=== PATIENT | female | born 1945 | race Caucasian/White ===

== ENCOUNTER → 2019-07-11 | Outpatient (CLI) | payer MEDICARE, BC ==
[~2019-07-11] MED LIST: ATEN25 PO; ATEN50 PO; ATOR20 PO; FLUO10 PO; LOSA25 PO
[2019-07-13 15:07] LABS: HPV 16 Negative (Negative); HPV 18 Negative (Negative); HPV OTHER HR TYPES Negative (Negative)
== END | disposition home or self-care (01) ==
LOC: LAB 17:58 → LAB SHORT 17:58
PROVIDERS: Obstetrics & Gynecology Gynecology
DX: Z12.72 Encounter for screening for malignant neoplasm of vagina (principal)
CPT/HCPCS: 87624; G0123

== ENCOUNTER 2025-06-15 15:06 | Emergency (ER) | payer MEDICARE, BC ==
[~2025-06-15] VITALS: Ht 160 cm; Wt 68.0 kg
[2025-06-15 15:44] VITALS: BP 192/87
[2025-06-15] MEDS ORDERED: Lidocaine 4% 1 Patch TOP ONE (17:35)
[2025-06-15] MEDS ORDERED: Ketorolac Tromethamine 15mg Vial IM ONE (17:35)
[2025-06-15] MEDS ORDERED: TIZA4 PO (19:11)
== END 2025-06-15 19:17 | disposition home or self-care (01) ==
LOC: ER 15:06
DX: M54.2 Cervicalgia (principal); M54.6 Pain in thoracic spine; I10 Essential (primary) hypertension; E78.5 Hyperlipidemia, unspecified; Z88.8 Allergy status to other drugs, medicaments and biological substances; Z79.899 Other long term (current) drug therapy; Z87.891 Personal history of nicotine dependence; Z59.89 Other problems related to housing and economic circumstances; W17.89XA Other fall from one level to another, initial encounter
CPT/HCPCS: 70450; 72125; 72128; 96372; 99283-25; A9270; J1885